=== PATIENT | male | born 1995 | race Caucasian/White ===

== ENCOUNTER 2018-02-04 08:38 | Inpatient (IN) | payer OTHER ==
[2018-02-04] MEDS ORDERED: NS 0.9% IVPB ONE (08:46)
[2018-02-04] MEDS ORDERED: HYDROXOCOBALAMIN IVPB ONE (08:46)
--- NOTE | 2018-02-04 09:02 | ED ---
Psychiatric Complaint - HPI Summary HPI Summary: This is scribe Greg Sales documenting for attending Dorinda Laughlin M.D. This patient is a 22 year old M presenting to [facility] with a chief complaint of suicide attempt with possible poison and cutting throat attempt since an unknown time [employer]. Pt emailed his brother telling him that he ingested cyanide. In addition, there are superficial lacerations to his throat. Pt is non-verbal, but was observed to be shaking/nodding his head at some questions in the ambulance. Per EMS, there was a chemical odor in his apartment. EMS found small amounts of a brown substance in 2 enclosed vials. Per EMS, pt was tachycardic for the entire time in the ambulance, and was measured at 99% O2 sat, BP 130/ 74. They note pt was tearful, salivating, and retching for the duration. Pts brother called pts mother, who called the power plant supervisor of the [employer]. Maintenance allowed EMS into apartment. Dr. Laughlin spoke with Debbie from poison center at 0832, will connect to Dr. Sifuentes. Pt vomited brownish liquid at the scene. Current BP 0837 103/61. Dr. Carter states his suspicion of cyanide ingestion is low, as pt would be in cardiac arrest by now; he notes pt will display severe metabolic acidosis if he did ingest cyanide (pH is 7.39 from lab). He recommends put in full 5 mg of hydroxocobalamin, which is compatible with saline , peripheral AC IV. Recommends 12.5 g sodium thiosulfate if pt enters cardiac arrest, in addition to another dose of hydroxocobalamin, but notes they are not compatible together (2nd IV is in place). 0839 pt no longer retching. 0846 start infusing hydroxocobalamin. Gas screen by [employer] negative on site. 0854 sat at 100% with 5 L NC. 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 PMHx bone densitometry done by Dr. Maynard, ordered for osteoporosis screening, nutritional deficiency; bone marrow density was found to be low. Hydroxocobalamin finished infusing 0903. Marte placed 0906. Temp 36.7 C. Police informed this scribe pt brought in on 9.41 status. Level 5 caveat : full HPI limited due to pt extremis. - History Of Current Complaint Chief Complaint: EDOverdose Time Seen by Provider: 02/04/18 08:42 Hx Obtained From: EMS Hx From Patient Unobtainable Due To: Extremis Onset/Duration: Sudden Onset, Lasting Minutes, Still Present Timing: Constant Severity Initially: Severe Severity Currently: Severe Character: Stuporous Aggravating Factor(s): Nothing Alleviating Factor(s): Nothing Associated Signs And Symptoms: Positive: Negative Has Suicidal: Reports: Thoughts, Demonstrates Gesture - Ingested unknown poison , lacerations to neck Ingestion History: Type/Name Of Drug - unknown, self-reported cyanide, Amount Ingested - unknown, Approximate Time Of Ingestion - unknown, around 0800 - Allergies/Home Medications Allergies/Adverse Reactions: Allergies Allergy/AdvReac Type Severity Reaction Status Date / Time No Known Allergies Allergy Verified 02/04/18 09:56 Home Medications: Home Medications Unobtainable 02/04/18 [History Confirmed 02/04/18] PMH/Surg Hx/FS Hx/Imm Hx Previously Healthy: No - unknown PMH, level 5 caveat due to extremis, altered mental status Endocrine/Hematology History: Denies: Hx Sickle Cell Disease Musculoskeletal History: Reports: Other Musculoskeletal History - low bone density 12/2017 - Surgical History Surgery Procedure, Year, and Place: unknown, level 5 caveat Infectious Disease History: Unable to Obtain/Confirm Infectious Disease History: Denies: Traveled Outside the [place] in Last 30 Days - Family History Known Family History: Positive: Unknown - level 5 caveat, extremis - Social History 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 Review of Systems Positive: Other - tearful, Positive: Nasal Discharge, Other - frothy sputum Positive: Cough Positive: Vomiting, Nausea Positive: no symptoms reported Positive: Rash - back, diffuse Positive: Other - SI, with attempt All Other Systems Reviewed And Are Negative: No - Comments Additional Review of Systems Comments: Level 5 caveat: Full ROS unobtainable due to pt extremis and altered mental status. Physical Exam - Summary Physical Exam Summary: Appearance: nasal trumpet placed in right nostril on admission due to decreased resps at times with decreased O2 sats, dry-heaving, appears to be moving all extremities, tearful, clear nasal secretions, spitting clear frothy sputum Skin: Warm, color reflects adequate perfusion, dry, superficial lacerations to the ant neck at the level of thyroid cartilage, superficial lacerations across LUQ and left ventral surface of forearm. Diffuse macular-papular erythematous rash on back. Head: Atraumatic, nasal and oral clear secretions Eyes: Conjunctiva clear, pupils 2 mm, reactive, squints eyes closed with attempt to check pupils. ENT: frothy sputum, nasal trumpet placed in right nostril on admission, clear nasal secretions Neck: Supple, no nodes, no JVD, two superficial lacerations to the anterior neck at the level of thyroid cartilage, non-penetrating, no neck swelling, trachea midline. Respiratory: Lungs clear, normal breath sounds, no wheeze, nasal trumpet in right nostril, periods of decreased respirations (9-11), increases with stimulation. Cardio: RRR, No murmur, pulses normal, brisk capillary refill Abdomen: Soft, non-tender, no masses Bowel sounds: Present Musculoskeletal: Strength Intact/ROM intact, no calf swelling, no edema. Appears to be moving all extremities. Psychological: Unable to assess, non-verbal Neuro: Non-verbal, muscle tone normal, no focal deficit, moves all extremities, Babinski down-going bilaterally. No facial droop. GCS: 8 Triage Information Reviewed: Yes Vital Signs On Initial Exam: Initial Vitals Temp Pulse Resp BP Pulse Ox 100.3 F 113 13 103/61 99 02/04/18 08:44 02/04/18 08:44 02/04/18 08:44 02/04/18 08:44 02/04/18 08:44 Vital Signs Reviewed: Yes Completion Of Physical Exam Limited Due To: Extremis - Randolph Coma Scale Best Eye Response: 2 - To Pain Best Motor Response: 5 - Purposeful Movement Best Verbal Response: 2 - Incomprehensible Words Coma Scale Total: 9 Diagnostics - Vital Signs Vital Signs Temp Pulse Resp BP Pulse Ox 02/04/18 08:44 100.3 F 113 13 103/61 99 - Laboratory Result Diagrams: 02/04/18 08:45 02/04/18 13:45 Lab Statement: Any lab studies that have been ordered have been reviewed, and results considered in the medical decision making process. - Radiology CXR Xray Interpretation: No Acute Changes Radiology Interpretation Completed By: Radiologist - No active cardiopulmonary disease. Dr. Laughlin has reviewed this report. - CT Neck CT Interpretation: No Acute Changes CT Interpretation Completed By: Radiologist - INCIDENTALLY NOTED IS ECTOPIC THYROID TISSUE TRACKING ALONG THE THYROGLOSSAL DUCT TO THE BASE OF THE TONGUE. NO ACUTE CT PATHOLOGY OF THE NECK. Dr. Laughlin has reviewed this report. Brain CT Interpretation Completed By: Radiologist - No acute intracranial pathology. Dr. Laughlin has reviewed this report. - EKG 0859 Cardiac Rate: NL - 69 EKG Rhythm: Sinus Rhythm ST Segment: Normal Ectopy: None EKG Interpretation: nl AV IV CT, nl QTc, nl axis EKG Comparison: No Significant Change - no prior to compare with Re-Evaluation - Re-Evaluation First Eval Change: Improved Comment: after CT, pt more alert, answers some yes/no questions, no focal deficit. Nasal trumpet removed. Dr. Mata assumes care, ICU. 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 EMS provided prenotification of possible substance ingestion, possible cyanide, and 2 substances found with pt and chemical odor. [employer] with meters and laser scan determined substances safe for pt to enter ED without decontamination, per Donald العراقي and Mehul from [facility]. Staff in ED and myself in full PPE prior to pt arrival, and universal precautions maintained by all involved in pt's care throughout pt stay in the ED. Haz mat team notified in advance of pt arrival and present in the ED. Discussed with poison control, Debbie, who contacted Dr. Carter, plant nursery worker, immediately upon pt arrival, and assisted care and recommended hydroxocobalamin, cyanide antidote, despite unlikely cyanide ingestion as pt not in cardiac arrest. Pharmacist Landon and Lauri Riley present in ED assisting with medication. Respiratory at bedside assisting suction, airway maintenance, monitoring respirations, obtaining ABG. Dr. Mata, ICU present in ED assessing and monitoring pt. Pt with superficial (apparent self inflicted) lacerations to ant neck, upper abdomen and left ventral forearm. Bleeding controlled. No evidence of penetrating injury, or intrusion into airway or trachea. CT soft tissues neck with contrast ordered to fully evaluate neck and airway. CXR, CT Brain, CT soft tissues neck with IV contrast , all negative. EGK 69 BPM nl sinus, nl axis, nl AV IV CT, nl QTc, no acute changes. Lactic acid 2.3, Glucose 119. ABG pH 7.39. Pt given hydroxocobalmin 5g IV (cyanide antidote) per poison control, Dr. Sifuentes, plant nursery worker. Pt returned to ED from CT, more alert. Nasal trumpet removed, fluids continue to infuse. Pt will have 1:1 observation for suicide attempt in addition to continued medical treatment for altered mental status, toxic ingestion of unknown substance, possible cyanide. Ingested substance later determined to be copper cyanide, toxic and caustic to GI tract. PPE and universal precautions maintained throughout ED stay by all staff involved in pt care. Pt transferred to ICU. [employer]PD officerJaden, present in ED. - Differential Dx/Clinical Impression Differential Diagnosis/HQI/PQRI: Positive: Acute Psychosis, Alcohol Intoxication , Drug Overdose/Intentional, Suicide Attempt, Suicidal Gesture Provider Diagnosis: Altered mental status, Laceration of neck, Suicide attempt, Ingested substance , unknown drug, Suicidal behavior with attempted self-injury, Suicide and self- inflicted injury by caustic substance - Physician Notifications Instructed by Provider To: Admit As Inpatient - Critical Care Time Critical Care Time: 30-74 min - 30 minutes, assessment of neck lacerations and poisoning with unknown ingested substance, in pt with altered mental status, and decreased respirations, low O2 saturations. Discharge - Sign-Out/Discharge Documenting (check all that apply): Patient Departure - admit - Discharge Plan Condition: Critical Disposition: ADMITTED TO [facility] - Billing Disposition and Condition Condition: CRITICAL Disposition: Admitted to [facility]
[2018-02-04] MEDS ORDERED: NS 0.9% 1000 ML* 2,000 ML IV ONE (09:06)
[2018-02-04 09:07] LABS: ABS Basophils 0.1 10^3/ul (0-0.2); ABS Eosinophils 0 10^3/ul (0-0.6); ABS Lymphocytes 1.2 10^3/ul (1.0-4.8); ABS Monocytes 0.5 10^3/ul (0-0.8); ABS Neutrophils 10.6 10^3/ul (1.5-7.7); ABS Nucleated RBC 0 10^3/ul; Eosinophil % 0.1 % (0-6); Hematocrit 47 % (42-52); Lymphocyte % 10.1 % (25-47); Mean Corpuscular HGB Conc 34 g/dl (31-36); Mean Corpuscular Hemoglobin 31 pg (27-31); Mean Corpuscular Volume 89 fL (80-94); Mean Platelet Volume 8.5 um3 (7.4-10.4); Nucleated Red Blood Cells % 0; Platelet Count 224 10^3/ul (150-450); Red Blood Count 5.25 10^6/ul (4.00-5.40); Red Cell Distribution Width 13 % (10.5-15); White Blood Count 12.4 10^3/ul (3.5-10.8)
[2018-02-04 09:20] LABS: EGFR Non-African American 109.3 (>60)
[2018-02-04] MEDS ORDERED: Iodixanol* (CONTRAST) 320 MG/ML 100 ML SDV IV ONE (09:37)
--- NOTE | 2018-02-04 09:44 | RAD ---
HISTORY: overdose, altered mental status COMPARISONS: None TECHNIQUE: Multiple contiguous axial CT scans were obtained of the head without intravenous contrast. FINDINGS: HEMORRHAGE/INFARCT: There is no hemorrhage or acute infarct. MASSES/SHIFT: There is no mass or shift. EXTRA-AXIAL SPACES: There are no extra-axial fluid collections. SULCI AND VENTRICLES: The sulci and ventricles are normal in size and position for the patient's stated age. CEREBRUM: There are no focal parenchymal abnormalities. BRAINSTEM: There are no focal parenchymal abnormalities. CEREBELLUM: There are no focal parenchymal abnormalities. VESSELS: The vessels are grossly normal. PARANASAL SINUSES: The paranasal sinuses are clear. ORBITS: The orbits are unremarkable. BONES AND SOFT TISSUE: No bone or soft tissue abnormalities are noted. OTHER: None IMPRESSION: NO ACUTE INTRACRANIAL PATHOLOGY.
--- NOTE | 2018-02-04 09:50 | RAD ---
HISTORY: self inflicted lacs to ant neck,thyroid cart level COMPARISONS: None TECHNIQUE: Multiple contiguous axial CT scans were obtained of the neck both before and after the administration of nonionic intravenous contrast, with coronal and sagittal multiplanar reformations. FINDINGS: BRAIN AND ORBITS: The visualized brain and orbits are normal. PARANASAL SINUSES: The visualized paranasal sinuses are clear. SALIVARY GLANDS: The parotid glands, submandibular glands, sublingual glands are normal. NASAL CAVITY/NASOPHARYNX: The nasal cavity and nasopharynx are normal. A nasal trumpet is noted. ORAL CAVITY/OROPHARYNX: The oral cavity is obscured by streak artifact from dental amalgam. The visualized oral cavity and oropharynx are unremarkable. LARYNGEAL APPARATUS/HYPOPHARYNX: The laryngeal apparatus and hypopharynx are normal. UPPER AIRWAY/UPPER ESOPHAGUS: The visualized upper airway and esophagus are normal. LUNG APICES: The lung apices are clear. THYROID GLAND: Incidentally noted is ectopic thyroid tissue tracking along the expected location of thyroglossal duct, extending to the base of the tongue. The thyroid gland is otherwise unremarkable. LYMPH NODES: There is no lymphadenopathy by size criteria. VASCULATURE: The vasculature is unremarkable. BONES AND SOFT TISSUES: Incidentally noted is a persistent subdental synchondrosis. No other bone or soft tissue abnormalities are noted. OTHER: None. IMPRESSION: INCIDENTALLY NOTED IS ECTOPIC THYROID TISSUE TRACKING ALONG THE THYROGLOSSAL DUCT TO THE BASE OF THE TONGUE. NO ACUTE CT PATHOLOGY OF THE NECK.
--- NOTE | 2018-02-04 10:09 | RAD ---
HISTORY: overdose COMPARISONS: None VIEWS: 1: frontal AP view of the chest at 9:34 AM FINDINGS: LINES AND TUBES: None. CARDIOMEDIASTINAL SILHOUETTE: The cardiomediastinal silhouette is normal for portable technique. PLEURA: The costophrenic angles are sharp. No pleural abnormalities are noted. LUNG PARENCHYMA: The lungs are clear. ABDOMEN: The upper abdomen is clear. There is no subphrenic gas. BONES AND SOFT TISSUES: No bone or soft tissue abnormalities are noted. IMPRESSION: NO ACTIVE CARDIOPULMONARY DISEASE.
[2018-02-04 10:31] LABS: INR 1.07 (0.77-1.02)
[2018-02-04 11:04] LABS: Urine Color Red
[2018-02-04 11:05] LABS: Urine Appearance Cloudy
[2018-02-04 11:07] LABS: Urine Specific Gravity 1.024 (1.010-1.030)
[2018-02-04 11:08] LABS: Urine Red Blood Cell 1+(3-5/hpf) (Absent); Urine White Blood Cell Trace(0-5/hpf) (Absent)
[2018-02-04] MEDS ORDERED: NS 0.9% 1000 ML* 1,000 ML IV SCH (11:30)
[2018-02-04] MEDS: Pantoprazole IV* 40 MG IV SCH (12:05)
--- NOTE | 2018-02-04 12:06 | HP ---
H&P (Free Text) History and Physical: CC: overdose HPI: 22M with unknown pmh brought in by EMS for drug overdose and suicide attempt. Patient altered and unable to provide history. History obtained from ER staff and chart. 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 He wrote an email to his brother stating he was going to kill himself using cyanide from his lab. His family called the apartment complex who called EMS. EMS found the patient altered and brought him to the ER. He was found with vials of unknown substances which have been obtained by the police. The patient had labs drawn, was given hydroxycyanocobalamin, iv fluids and transferred to the ICU. Upon arrival in the ICU the patient was slightly more arousable and was able to draw the symbol for copper cyanide on a piece of paper. He also has superficial lacerations on his neck and stomach and arm. Case was discussed with poison control. ROS - unable 2/2 AMS PMHx - unknown PSHx - unknown All - NKDA FamHx - unknown SocHx - unknown PE Vital Signs: Temp Pulse Resp BP Pulse Ox 99.1 F 76 24 120/78 100 02/04/18 11:35 02/04/18 10:15 02/04/18 10:15 02/04/18 10:15 02/04/18 10:15 GEN - NAD HEENT - ncat, eomi Neck - +superficial lacs CV - s1/s2, no murmur Lungs - cta, no wheeze Abd - soft, nt, nd Ext - no cce Neuro - lethargic, arousable, following commands Labs: Laboratory Results - last 24 hr 02/04/18 02/04/18 02/04/18 08:45 08:45 08:45 WBC 12.4 H RBC 5.25 Hgb 16.0 Hct 47 MCV 89 MCH 31 MCHC 34 RDW 13 Plt Count 224 MPV 8.5 Neut % (Auto) 85.3 H Lymph % (Auto) 10.1 L [place] % (Auto) 4.1 Eos % (Auto) 0.1 Baso % (Auto) 0.4 Absolute Neuts (auto) 10.6 H Absolute Lymphs (auto) 1.2 Absolute Monos (auto) 0.5 Absolute Eos (auto) 0 Absolute Basos (auto) 0.1 Absolute Nucleated RBC 0 Nucleated RBC % 0 INR (Anticoag Therapy) APTT Patient Temperature ABG pH ABG pH (Temp Correct) ABG pCO2 ABG pCO2 (Temp Corrct ABG pO2 ABG pO2 (Temp Correct ABG HCO3 ABG O2 Saturation ABG Base Excess Carbon Monoxide Screen Respiration Rate O2 Delivery Device Ventilator Type Vent Mode FiO2 Inspiratory Time PEEP Pressure Support Pressure Control EPAP IPAP BiPAP Sodium 136 Potassium 4.1 Chloride 102 Carbon Dioxide 22 Anion Gap 12 H BUN 16 Creatinine 0.86 Est GFR ( Amer) 132.2 Est GFR (Non-Af Amer) 109.3 BUN/Creatinine Ratio 18.6 Glucose 119 H Serum Osmolality Lactic Acid Calcium 10.1 Phosphorus 2.0 L Magnesium 2.1 Total Bilirubin 1.10 H AST 22 ALT 18 Alkaline Phosphatase 60 Ammonia 39 Total Creatine Kinase 91 Troponin I 0.00 Total Protein 7.8 Albumin 5.1 Globulin 2.7 Albumin/Globulin Ratio 1.9 TSH 1.38 Urine Color Urine Appearance Urine pH Ur Specific [place] Urine WBC (Auto) Urine RBC (Auto) Amorphous Crystals Urine Bacteria Salicylates < 2.50 Urine Opiates Screen Acetaminophen < 15 Ur Barbiturates Screen Ur Phencyclidine Scrn Ur Amphetamines Screen U Benzodiazepines Scrn Urine Cocaine Screen U Cannabinoids Screen Serum Alcohol < 10 Blood Type Antibody Screen 02/04/18 02/04/18 02/04/18 08:45 08:45 08:45 WBC RBC Hgb Hct MCV MCH MCHC RDW Plt Count MPV Neut % (Auto) Lymph % (Auto) [place] % (Auto) Eos % (Auto) Baso % (Auto) Absolute Neuts (auto) Absolute Lymphs (auto) Absolute Monos (auto) Absolute Eos (auto) Absolute Basos (auto) Absolute Nucleated RBC Nucleated RBC % INR (Anticoag Therapy) 1.07 H APTT 28.9 Patient Temperature ABG pH ABG pH (Temp Correct) ABG pCO2 ABG pCO2 (Temp Corrct ABG pO2 ABG pO2 (Temp Correct ABG HCO3 ABG O2 Saturation ABG Base Excess Carbon Monoxide Screen Respiration Rate O2 Delivery Device Ventilator Type Vent Mode FiO2 Inspiratory Time PEEP Pressure Support Pressure Control EPAP IPAP BiPAP Sodium Potassium Chloride Carbon Dioxide Anion Gap BUN Creatinine Est GFR ( Amer) Est GFR (Non-Af Amer) BUN/Creatinine Ratio Glucose Serum Osmolality 293 Lactic Acid 2.3 H* Calcium Phosphorus Magnesium Total Bilirubin AST ALT Alkaline Phosphatase Ammonia Total Creatine Kinase Troponin I Total Protein Albumin Globulin Albumin/Globulin Ratio TSH Urine Color Urine Appearance Urine pH Ur Specific [place] Urine WBC (Auto) Urine RBC (Auto) Amorphous Crystals Urine Bacteria Salicylates Urine Opiates Screen Acetaminophen Ur Barbiturates Screen Ur Phencyclidine Scrn Ur Amphetamines Screen U Benzodiazepines Scrn Urine Cocaine Screen U Cannabinoids Screen Serum Alcohol Blood Type Antibody Screen 02/04/18 02/04/18 02/04/18 08:50 08:50 08:57 WBC RBC Hgb Hct MCV MCH MCHC RDW Plt Count MPV Neut % (Auto) Lymph % (Auto) [place] % (Auto) Eos % (Auto) Baso % (Auto) Absolute Neuts (auto) Absolute Lymphs (auto) Absolute Monos (auto) Absolute Eos (auto) Absolute Basos (auto) Absolute Nucleated RBC Nucleated RBC % INR (Anticoag Therapy) APTT Patient Temperature Not Reportable ABG pH 7.39 ABG pH (Temp Correct) Not Reportable ABG pCO2 38 ABG pCO2 (Temp Corrct Not Reportable ABG pO2 135 H ABG pO2 (Temp Correct Not Reportable ABG HCO3 23.5 ABG O2 Saturation 99.0 H ABG Base Excess -1.7 Carbon Monoxide Screen Respiration Rate Not Reportable O2 Delivery Device nc Ventilator Type Not Reportable Vent Mode Not Reportable FiO2 5 Inspiratory Time Not Reportable PEEP Not Reportable Pressure Support Not Reportable Pressure Control Not Reportable EPAP Not Reportable IPAP Not Reportable BiPAP Not Reportable Sodium Potassium Chloride Carbon Dioxide Anion Gap BUN Creatinine Est GFR ( Amer) Est GFR (Non-Af Amer) BUN/Creatinine Ratio Glucose Serum Osmolality Lactic Acid Calcium Phosphorus Magnesium Total Bilirubin AST ALT Alkaline Phosphatase Ammonia Total Creatine Kinase Troponin I Total Protein Albumin Globulin Albumin/Globulin Ratio TSH Urine Color Urine Appearance Urine pH Ur Specific [place] Urine WBC (Auto) Urine RBC (Auto) Amorphous Crystals Urine Bacteria Salicylates Urine Opiates Screen None detected Acetaminophen Ur Barbiturates Screen None detected Ur Phencyclidine Scrn None detected Ur Amphetamines Screen None detected U Benzodiazepines Scrn None detected Urine Cocaine Screen None detected U Cannabinoids Screen Presumptive positive A Serum Alcohol Blood Type A Positive Antibody Screen Negative 02/04/18 02/04/18 09:00 10:00 WBC RBC Hgb Hct MCV MCH MCHC RDW Plt Count MPV Neut % (Auto) Lymph % (Auto) [place] % (Auto) Eos % (Auto) Baso % (Auto) Absolute Neuts (auto) Absolute Lymphs (auto) Absolute Monos (auto) Absolute Eos (auto) Absolute Basos (auto) Absolute Nucleated RBC Nucleated RBC % INR (Anticoag Therapy) APTT Patient Temperature ABG pH ABG pH (Temp Correct) ABG pCO2 ABG pCO2 (Temp Corrct ABG pO2 ABG pO2 (Temp Correct ABG HCO3 ABG O2 Saturation ABG Base Excess Carbon Monoxide Screen < 4 Respiration Rate O2 Delivery Device Ventilator Type Vent Mode FiO2 Inspiratory Time PEEP Pressure Support Pressure Control EPAP IPAP BiPAP Sodium Potassium Chloride Carbon Dioxide Anion Gap BUN Creatinine Est GFR ( Amer) Est GFR (Non-Af Amer) BUN/Creatinine Ratio Glucose Serum Osmolality Lactic Acid Calcium Phosphorus Magnesium Total Bilirubin AST ALT Alkaline Phosphatase Ammonia Total Creatine Kinase Troponin I Total Protein Albumin Globulin Albumin/Globulin Ratio TSH Urine Color Red A Urine Appearance Cloudy Urine pH Ur Specific [place] 1.024 Urine WBC (Auto) Trace(0-5/hpf) Urine RBC (Auto) 1+(3-5/hpf) A Amorphous Crystals Present A Urine Bacteria Absent Salicylates Urine Opiates Screen Acetaminophen Ur Barbiturates Screen Ur Phencyclidine Scrn Ur Amphetamines Screen U Benzodiazepines Scrn Urine Cocaine Screen U Cannabinoids Screen Serum Alcohol Blood Type Antibody Screen Imagin/2: CT Head Impression: No acute intracranial pathology 02/04: CXR Impression: No cardiopulmonary disease 02/04: CT Neck Impression: No acute neck pathology. Incidental ectopic thyroid tissue. Impression: 22M with unknown PMH presents after suicide attempt with copper cyanide Plan: - Discussed with Poison control - unlikely to cause cyanide toxicity in copper salt form - copper salt can be caustic to GI tract - given hydroxycyanocobalamin in ER - utox positive for cannabinoids - picc line placed for q1h vbg and lactates - GI consult - PPI - NPO - Psychiatry consult - 1:1 for safety - iv hydration - monitor i/o - scds - full code Admit to ICU Critical Care Time: 70 minutes
[2018-02-04 14:28] LABS: EGFR Non-African American 150.9 (>60)
[2018-02-04] MEDS ORDERED: Heparin VIAL(*) 5000 UNITS/ML VIAL (FIVE THOUSAND) SUBCUT SCH (21:00)
[2018-02-05 06:16] LABS: ABS Basophils 0.1 10^3/ul (0-0.2); ABS Eosinophils 0.1 10^3/ul (0-0.6); ABS Lymphocytes 1.2 10^3/ul (1.0-4.8); ABS Monocytes 0.6 10^3/ul (0-0.8); ABS Neutrophils 7.6 10^3/ul (1.5-7.7); ABS Nucleated RBC 0 10^3/ul; Eosinophil % 0.7 % (0-6); Hematocrit 41 % (42-52); Lymphocyte % 12.7 % (25-47); Mean Corpuscular HGB Conc 35 g/dl (31-36); Mean Corpuscular Hemoglobin 31 pg (27-31); Mean Corpuscular Volume 91 fL (80-94); Mean Platelet Volume 8.5 um3 (7.4-10.4); Nucleated Red Blood Cells % 0.1; Platelet Count 154 10^3/ul (150-450); Red Blood Count 4.48 10^6/ul (4.00-5.40); Red Cell Distribution Width 14 % (10.5-15); White Blood Count 9.6 10^3/ul (3.5-10.8)
[2018-02-05 06:32] LABS: EGFR Non-African American 122.3 (>60)
--- NOTE | 2018-02-05 08:28 | PN ---
Date of Service: 02/05/18 Critical Care Services: 22M admitted with suicide attempt with copper cyanide. 02/05: Urine remains discolored. Discussed with poison control and is secondary to cyano-kit given in ER. Patient reports diarrhea. No other complaints. Vital Signs: Temp Pulse Resp BP SpO2 FiO2 99.2 F 63 15 105/54 96 02/05/18 07:47 02/05/18 05:00 02/05/18 05:00 02/05/18 04:00 02/05/18 04:00 Physical Exam: GEN - NAD HEENT - ncat, eomi Neck - +superficial lacs CV - s1/s2, no murmur Lungs - cta, no wheeze Abd - soft, nt, nd Ext - no cce Neuro - non-focal Fluid Balance (Past 24 Hours): I= O= Net Intake & Output 02/03/18 02/04/18 02/05/18 02/06/18 06:59 06:59 06:59 06:59 Intake Total 3049 Output Total 1179 Balance 1870 Weight 49.7 kg Intake: IV Fluids 3049 NS (0.9%) 1299 Oral 0 Output: Sandoval 1179 Other: # Bowel Movements 0 Estimated Stool Amount Large Labs: Laboratory Results - last 24 hr 02/04/18 02/04/18 02/04/18 08:45 08:45 08:45 WBC 12.4 H RBC 5.25 Hgb 16.0 Hct 47 MCV 89 MCH 31 MCHC 34 RDW 13 Plt Count 224 MPV 8.5 Neut % (Auto) 85.3 H Lymph % (Auto) 10.1 L [place] % (Auto) 4.1 Eos % (Auto) 0.1 Baso % (Auto) 0.4 Absolute Neuts (auto) 10.6 H Absolute Lymphs (auto) 1.2 Absolute Monos (auto) 0.5 Absolute Eos (auto) 0 Absolute Basos (auto) 0.1 Absolute Nucleated RBC 0 Nucleated RBC % 0 INR (Anticoag Therapy) APTT Patient Temperature ABG pH ABG pH (Temp Correct) ABG pCO2 ABG pCO2 (Temp Corrct ABG pO2 ABG pO2 (Temp Correct ABG HCO3 ABG O2 Saturation ABG Base Excess VBG pH VBG pCO2 VBG pO2 VBG HCO3 VBG O2 Saturation VBG Base Excess Carbon Monoxide Screen Respiration Rate O2 Delivery Device Ventilator Type Vent Mode FiO2 Inspiratory Time PEEP Pressure Support Pressure Control EPAP IPAP BiPAP Sodium 136 Potassium 4.1 Chloride 102 Carbon Dioxide 22 Anion Gap 12 H BUN 16 Creatinine 0.86 Est GFR ( Amer) 132.2 Est GFR (Non-Af Amer) 109.3 BUN/Creatinine Ratio 18.6 Glucose 119 H Serum Osmolality Lactic Acid Calcium 10.1 Phosphorus 2.0 L Magnesium 2.1 Total Bilirubin 1.10 H AST 22 ALT 18 Alkaline Phosphatase 60 Ammonia 39 Total Creatine Kinase 91 Troponin I 0.00 Total Protein 7.8 Albumin 5.1 Globulin 2.7 Albumin/Globulin Ratio 1.9 TSH 1.38 Urine Color Urine Appearance Urine pH Ur Specific Brimson Urine WBC (Auto) Urine RBC (Auto) Amorphous Crystals Urine Bacteria Salicylates < 2.50 Urine Opiates Screen Acetaminophen < 15 Ur Barbiturates Screen Ur Phencyclidine Scrn Ur Amphetamines Screen U Benzodiazepines Scrn Urine Cocaine Screen U Cannabinoids Screen Serum Alcohol < 10 Blood Type Antibody Screen 02/04/18 02/04/18 02/04/18 08:45 08:45 08:45 WBC RBC Hgb Hct MCV MCH MCHC RDW Plt Count MPV Neut % (Auto) Lymph % (Auto) [place] % (Auto) Eos % (Auto) Baso % (Auto) Absolute Neuts (auto) Absolute Lymphs (auto) Absolute Monos (auto) Absolute Eos (auto) Absolute Basos (auto) Absolute Nucleated RBC Nucleated RBC % INR (Anticoag Therapy) 1.07 H APTT 28.9 Patient Temperature ABG pH ABG pH (Temp Correct) ABG pCO2 ABG pCO2 (Temp Corrct ABG pO2 ABG pO2 (Temp Correct ABG HCO3 ABG O2 Saturation ABG Base Excess VBG pH VBG pCO2 VBG pO2 VBG HCO3 VBG O2 Saturation VBG Base Excess Carbon Monoxide Screen Respiration Rate O2 Delivery Device Ventilator Type Vent Mode FiO2 Inspiratory Time PEEP Pressure Support Pressure Control EPAP IPAP BiPAP Sodium Potassium Chloride Carbon Dioxide Anion Gap BUN Creatinine Est GFR ( Amer) Est GFR (Non-Af Amer) BUN/Creatinine Ratio Glucose Serum Osmolality 293 Lactic Acid 2.3 H* Calcium Phosphorus Magnesium Total Bilirubin AST ALT Alkaline Phosphatase Ammonia Total Creatine Kinase Troponin I Total Protein Albumin Globulin Albumin/Globulin Ratio TSH Urine Color Urine Appearance Urine pH Ur Specific [place]imson Urine WBC (Auto) Urine RBC (Auto) Amorphous Crystals Urine Bacteria Salicylates Urine Opiates Screen Acetaminophen Ur Barbiturates Screen Ur Phencyclidine Scrn Ur Amphetamines Screen U Benzodiazepines Scrn Urine Cocaine Screen U Cannabinoids Screen Serum Alcohol Blood Type Antibody Screen 02/04/18 02/04/18 02/04/18 08:50 08:50 08:57 WBC RBC Hgb Hct MCV MCH MCHC RDW Plt Count MPV Neut % (Auto) Lymph % (Auto) [place] % (Auto) Eos % (Auto) Baso % (Auto) Absolute Neuts (auto) Absolute Lymphs (auto) Absolute Monos (auto) Absolute Eos (auto) Absolute Basos (auto) Absolute Nucleated RBC Nucleated RBC % INR (Anticoag Therapy) APTT Patient Temperature Not Reportable ABG pH 7.39 ABG pH (Temp Correct) Not Reportable ABG pCO2 38 ABG pCO2 (Temp Corrct Not Reportable ABG pO2 135 H ABG pO2 (Temp Correct Not Reportable ABG HCO3 23.5 ABG O2 Saturation 99.0 H ABG Base Excess -1.7 VBG pH VBG pCO2 VBG pO2 VBG HCO3 VBG O2 Saturation VBG Base Excess Carbon Monoxide Screen Respiration Rate Not Reportable O2 Delivery Device nc Ventilator Type Not Reportable Vent Mode Not Reportable FiO2 5 Inspiratory Time Not Reportable PEEP Not Reportable Pressure Support Not Reportable Pressure Control Not Reportable EPAP Not Reportable IPAP Not Reportable BiPAP Not Reportable Sodium Potassium Chloride Carbon Dioxide Anion Gap BUN Creatinine Est GFR ( Amer) Est GFR (Non-Af Amer) BUN/Creatinine Ratio Glucose Serum Osmolality Lactic Acid Calcium Phosphorus Magnesium Total Bilirubin AST ALT Alkaline Phosphatase Ammonia Total Creatine Kinase Troponin I Total Protein Albumin Globulin Albumin/Globulin Ratio TSH Urine Color Urine Appearance Urine pH Ur Specific Brimson Urine WBC (Auto) Urine RBC (Auto) Amorphous Crystals Urine Bacteria Salicylates Urine Opiates Screen None detected Acetaminophen Ur Barbiturates Screen None detected Ur Phencyclidine Scrn None detected Ur Amphetamines Screen None detected U Benzodiazepines Scrn None detected Urine Cocaine Screen None detected U Cannabinoids Screen Presumptive positive A Serum Alcohol Blood Type A Positive Antibody Screen Negative 02/04/18 02/04/18 02/04/18 09:00 10:00 11:45 WBC RBC Hgb Hct MCV MCH MCHC RDW Plt Count MPV Neut % (Auto) Lymph % (Auto) [place] % (Auto) Eos % (Auto) Baso % (Auto) Absolute Neuts (auto) Absolute Lymphs (auto) Absolute Monos (auto) Absolute Eos (auto) Absolute Basos (auto) Absolute Nucleated RBC Nucleated RBC % INR (Anticoag Therapy) APTT Patient Temperature ABG pH ABG pH (Temp Correct) ABG pCO2 ABG pCO2 (Temp Corrct ABG pO2 ABG pO2 (Temp Correct ABG HCO3 ABG O2 Saturation ABG Base Excess VBG pH 7.32 L VBG pCO2 46 VBG pO2 37 VBG HCO3 22.0 L VBG O2 Saturation 71.5 VBG Base Excess -2.7 L Carbon Monoxide Screen < 4 Respiration Rate O2 Delivery Device Ventilator Type Vent Mode FiO2 Inspiratory Time PEEP Pressure Support Pressure Control EPAP IPAP BiPAP Sodium Potassium Chloride Carbon Dioxide Anion Gap BUN Creatinine Est GFR ( Amer) Est GFR (Non-Af Amer) BUN/Creatinine Ratio Glucose Serum Osmolality Lactic Acid Calcium Phosphorus Magnesium Total Bilirubin AST ALT Alkaline Phosphatase Ammonia Total Creatine Kinase Troponin I Total Protein Albumin Globulin Albumin/Globulin Ratio TSH Urine Color Red A Urine Appearance Cloudy Urine pH Ur Specific Brimson 1.024 Urine WBC (Auto) Trace(0-5/hpf) Urine RBC (Auto) 1+(3-5/hpf) A Amorphous Crystals Present A Urine Bacteria Absent Salicylates Urine Opiates Screen Acetaminophen Ur Barbiturates Screen Ur Phencyclidine Scrn Ur Amphetamines Screen U Benzodiazepines Scrn Urine Cocaine Screen U Cannabinoids Screen Serum Alcohol Blood Type Antibody Screen 02/04/18 02/04/18 02/04/18 11:45 13:45 13:45 WBC RBC Hgb Hct MCV MCH MCHC RDW Plt Count MPV Neut % (Auto) Lymph % (Auto) [place] % (Auto) Eos % (Auto) Baso % (Auto) Absolute Neuts (auto) Absolute Lymphs (auto) Absolute Monos (auto) Absolute Eos (auto) Absolute Basos (auto) Absolute Nucleated RBC Nucleated RBC % INR (Anticoag Therapy) APTT Patient Temperature ABG pH ABG pH (Temp Correct) ABG pCO2 ABG pCO2 (Temp Corrct ABG pO2 ABG pO2 (Temp Correct ABG HCO3 ABG O2 Saturation ABG Base Excess VBG pH 7.31 L VBG pCO2 47 VBG pO2 40 VBG HCO3 22.0 L VBG O2 Saturation 76.9 VBG Base Excess -2.9 L Carbon Monoxide Screen Respiration Rate O2 Delivery Device Ventilator Type Vent Mode FiO2 Inspiratory Time PEEP Pressure Support Pressure Control EPAP IPAP BiPAP Sodium Potassium Chloride Carbon Dioxide Anion Gap BUN Creatinine Est GFR ( Amer) Est GFR (Non-Af Amer) BUN/Creatinine Ratio Glucose Serum Osmolality Lactic Acid 0.8 0.6 Calcium Phosphorus Magnesium Total Bilirubin AST ALT Alkaline Phosphatase Ammonia Total Creatine Kinase Troponin I Total Protein Albumin Globulin Albumin/Globulin Ratio TSH Urine Color Urine Appearance Urine pH Ur Specific Brimson Urine WBC (Auto) Urine RBC (Auto) Amorphous Crystals Urine Bacteria Salicylates Urine Opiates Screen Acetaminophen Ur Barbiturates Screen Ur Phencyclidine Scrn Ur Amphetamines Screen U Benzodiazepines Scrn Urine Cocaine Screen U Cannabinoids Screen Serum Alcohol Blood Type Antibody Screen 02/04/18 02/05/18 02/05/18 13:45 05:55 05:55 WBC 9.6 RBC 4.48 Hgb 14.0 Hct 41 L MCV 91 MCH 31 MCHC 35 RDW 14 Plt Count 154 MPV 8.5 Neut % (Auto) 79.1 Lymph % (Auto) 12.7 L [place] % (Auto) 6.8 Eos % (Auto) 0.7 Baso % (Auto) 0.7 Absolute Neuts (auto) 7.6 Absolute Lymphs (auto) 1.2 Absolute Monos (auto) 0.6 Absolute Eos (auto) 0.1 Absolute Basos (auto) 0.1 Absolute Nucleated RBC 0 Nucleated RBC % 0.1 INR (Anticoag Therapy) APTT Patient Temperature ABG pH ABG pH (Temp Correct) ABG pCO2 ABG pCO2 (Temp Corrct ABG pO2 ABG pO2 (Temp Correct ABG HCO3 ABG O2 Saturation ABG Base Excess VBG pH VBG pCO2 VBG pO2 VBG HCO3 VBG O2 Saturation VBG Base Excess Carbon Monoxide Screen Respiration Rate O2 Delivery Device Ventilator Type Vent Mode FiO2 Inspiratory Time PEEP Pressure Support Pressure Control EPAP IPAP BiPAP Sodium 139 140 Potassium 4.1 4.2 Chloride 109 110 Carbon Dioxide 24 23 Anion Gap 6 7 BUN 13 13 Creatinine 0.65 L 0.78 Est GFR ( Amer) 182.6 148.0 Est GFR (Non-Af Amer) 150.9 122.3 BUN/Creatinine Ratio 20.0 16.7 Glucose 91 77 Serum Osmolality Lactic Acid Calcium 8.5 L 8.9 Phosphorus 4.0 Magnesium 2.1 Total Bilirubin 1.40 H AST 20 ALT 16 Alkaline Phosphatase 58 Ammonia Total Creatine Kinase Troponin I Total Protein 6.4 Albumin 4.1 Globulin 2.3 Albumin/Globulin Ratio 1.8 TSH Urine Color Urine Appearance Urine pH Ur Specific Brimson Urine WBC (Auto) Urine RBC (Auto) Amorphous Crystals Urine Bacteria Salicylates Urine Opiates Screen Acetaminophen Ur Barbiturates Screen Ur Phencyclidine Scrn Ur Amphetamines Screen U Benzodiazepines Scrn Urine Cocaine Screen U Cannabinoids Screen Serum Alcohol Blood Type Antibody Screen 02/05/18 05:55 WBC RBC Hgb Hct MCV MCH MCHC RDW Plt Count MPV Neut % (Auto) Lymph % (Auto) [place] % (Auto) Eos % (Auto) Baso % (Auto) Absolute Neuts (auto) Absolute Lymphs (auto) Absolute Monos (auto) Absolute Eos (auto) Absolute Basos (auto) Absolute Nucleated RBC Nucleated RBC % INR (Anticoag Therapy) APTT Patient Temperature ABG pH ABG pH (Temp Correct) ABG pCO2 ABG pCO2 (Temp Corrct ABG pO2 ABG pO2 (Temp Correct ABG HCO3 ABG O2 Saturation ABG Base Excess VBG pH VBG pCO2 VBG pO2 VBG HCO3 VBG O2 Saturation VBG Base Excess Carbon Monoxide Screen Respiration Rate O2 Delivery Device Ventilator Type Vent Mode FiO2 Inspiratory Time PEEP Pressure Support Pressure Control EPAP IPAP BiPAP Sodium Potassium Chloride Carbon Dioxide Anion Gap BUN Creatinine Est GFR ( Amer) Est GFR (Non-Af Amer) BUN/Creatinine Ratio Glucose Serum Osmolality Lactic Acid 0.6 Calcium Phosphorus Magnesium Total Bilirubin AST ALT Alkaline Phosphatase Ammonia Total Creatine Kinase Troponin I Total Protein Albumin Globulin Albumin/Globulin Ratio TSH Urine Color Urine Appearance Urine pH Ur Specific Brimson Urine WBC (Auto) Urine RBC (Auto) Amorphous Crystals Urine Bacteria Salicylates Urine Opiates Screen Acetaminophen Ur Barbiturates Screen Ur Phencyclidine Scrn Ur Amphetamines Screen U Benzodiazepines Scrn Urine Cocaine Screen U Cannabinoids Screen Serum Alcohol Blood Type Antibody Screen Studies: 02/04: CT Head Impression: No acute intracranial pathology 02/04: CXR Impression: No cardiopulmonary disease 02/04: CT Neck Impression: No acute neck pathology. Incidental ectopic thyroid tissue. Impression: 22M with depresison presents after suicide attempt with copper cyanide Plan: Suicide Attempt with Copper-Cyanide - overall improved - labs unremarkable - continue 1:1 for safety - psychiatry consult - diarrhea 2/2 copper ingestion - discussed with GI and EGD not-indicated - will advance diet as tolerated - Urine remains purple colored (side effect from cyano-kit) - would keep sandoval for now - DC PICC line - SCDs - Stable for transfer to Floor - Turnover given to Hospitalist - Father updated via telephone - Full Code Critical Care Time: 35 mins
--- NOTE | 2018-02-05 09:34 | PTEDU ---
Patient Name: BETZAIDA SINGERYASMINJYOTI BETZAIDA MURRAY JYOTI selected video: About Your Heart Attack to view on 02/05/2018 at 9:33:32 AM from [id number]
[2018-02-05] MEDS: Pantoprazole IV* 40 MG IV SCH (11:03)
--- NOTE | 2018-02-05 12:39 | PN ---
Hospitalist Progress Note Date of Service: 02/05/18 Dr. Mata signed out Mr. Ruiz to me for transfer to the floor and I will assume his care today. I have discussed the case with him as well as with his nurse, Donavon today. Mr Ruiz remains on a 1:1 and is alert and pleasant and visiting with family. His vitals are stable, his labs are stable from this morning, and we await a psych consult. Poison control is on the case and I also spoke with Dr. Leigh's nurse and asked her to relay that he is not tolerating po at this time.
[2018-02-05] MEDS: Ondansetron INJ* 2 MG/ML VIAL IV PRN (18:12)
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
[2018-02-05] MEDS ORDERED: Artificial Tears* 15 ML BTL BOTH EYES PRN (22:33)
[2018-02-05] MEDS ORDERED: Polyethyl Glycol/Propylene Gly OPHTH.SOLN BOTH EYES PRN (22:51)
[2018-02-06] MEDS: Ondansetron INJ* 2 MG/ML VIAL IV PRN (07:26)
[2018-02-06] MEDS ORDERED: NS 0.9% 1000 ML* 1,000 ML IV ONE (10:14)
--- NOTE | 2018-02-06 10:32 | PN ---
Subjective Date of Service: 02/06/18 Interval History: . patient in better spirits Numerous friends visiting In terms of his nausea, it is decreased. He had episode of emesis after breakfast, but not since and not as of 5 PM -- Denies pain at this time. He is expecting to go to psychiatry floor (MHU) after he is deemed medically stable. He wants his sandoval removed and I agreed to that. Because of a few episodes of diarrhea, I am willing to give extra IVF and we will receck his electrolytes in the morning. His mom and dad are travelling to see him from [place], will arrive later. Discussed case with [facility] control ([phone] (spoke with "Debbie"). They recommend EGD, but do so academically and based on overstatement of nausea by nursing staff (miscommunication per patient). Patient is on PPI. Clinically, no indication for EGD at this time; but will re- discuss with GI this week. 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 perhaps transfer to MHU tomorrow, but we can follow . Family History: Unchanged from Admission Social History: Unchanged from Admission Past Medical History: Unchanged from Admission Objective Active Medications: . Sodium Chloride (Ns 0.9% 1000 Ml*) 1,000 mls @ 1,000 mls/hr IV .PER RATE ONE Stop: 02/06/18 11:13 Ondansetron HCl (Zofran Inj*) 4 mg IV Q6H PRN PRN Reason: NAUSEA Last Admin: 02/06/18 07:26 Dose: 4 mg Pantoprazole Sodium (Protonix Iv*) 40 mg IV Q24H SONA Last Admin: 02/05/18 11:03 Dose: 40 mg Polyethyl Glycol/Propylene Glycol (Lubricant Eye Drops) 1 drop BOTH EYES Q2H PRN PRN Reason: DRY EYE Last Admin: 02/05/18 23:15 Dose: 1 drop . Vital Signs - 8 hr 02/06/18 02/06/18 02/06/18 04:25 04:36 07:25 Temperature 99.3 F 99.3 F 98.9 F Pulse Rate 74 74 84 Respiratory 18 18 16 Rate Blood Pressure 131/67 131/67 133/64 (mmHg) O2 Sat by Pulse 100 100 100 Oximetry 02/06/18 07:26 Temperature Pulse Rate Respiratory 16 Rate Blood Pressure (mmHg) O2 Sat by Pulse Oximetry Oxygen Devices in Use Now: None Appearance: NAD Eyes: No Scleral Icterus Ears/Nose/Mouth/Throat: Clear Oropharnyx, - - lacerations on leck C/D/I - superficial. Neck: Trachea Midline Respiratory: Symmetrical Chest Expansion and Respiratory Effort, Clear to Auscultation Cardiovascular: NL Sounds; No Murmurs; No JVD Abdominal: NL Sounds; No Tenderness; No Distention Lymphatic: No Cervical Adenopathy Extremities: No Edema, - - cuts to arms noted Skin: No Rash or Ulcers Neurological: Alert and Oriented x 3 Lines/Tubes/Other Access: Clean, Dry and Intact Peripheral IV Nutrition: Taking PO's Result Diagrams: 02/05/18 05:55 02/07/18 06:15 Microbiology and Other Data: Microbiology 02/04/18 10:00 Urine Culture - Final Urine No Growth (<1,000 CFU/mL) 02/04/18 10:00 Nasal Screen MRSA (PCR) - Final Nasal Mrsa Not Detected Assess/Plan/Problems-Billing . Assessment: 22 yo man with suicide attempt with copper cyanide and also superficial neck and wrist lacerations. Medically improving - still with diarrhea (GI toxicity) but only minor electrolyte abnormalities Nausea is improving (zofran resolves it and it is becoming less severe). IVF for dehydration pursuant to diarrhea. Advancing diet Psychiatrist following closely - will take in MHU when medically clear (perhaps 02/07/2018). Checking labs in AM. . - Patient Problems (1) Attempted suicide Current Visit: Yes Status: Acute Priority: High (2) Copper poisoning Current Visit: Yes Status: Acute Priority: High Code(s): T56.4X1A - TOXIC EFFECT OF COPPER AND ITS COMPOUNDS, ACCIDENTAL, INIT (3) Excessive copper intake Current Visit: Yes Status: Acute Priority: High Code(s): R68.89 - OTHER GENERAL SYMPTOMS AND SIGNS (4) Laceration of wrist Current Visit: Yes Status: Acute Priority: High Code(s): S61.519A - LACERATION WITHOUT FOREIGN BODY OF UNSP WRIST, INIT ENCNTR
[2018-02-06] MEDS: Pantoprazole IV* 40 MG IV SCH (10:33)
[2018-02-07 07:09] LABS: EGFR Non-African American 115.4 (>60)
[2018-02-07] MEDS ORDERED: Potassium Chlor TAB* 20 MEQ TAB.ER PO ONE (08:10)
[2018-02-07] MEDS ORDERED: Magnesium Sulf 4 GM/100 ML IV* 4,000 MG/100 ML BAG IVPB ONE (08:10)
[2018-02-07] MEDS: Pantoprazole IV* 40 MG IV SCH (09:42)
--- NOTE | 2018-02-07 13:20 | PN ---
Hospitalist Progress Note Date of Service: 02/07/18 . HOSPITALIST DISCHARGE NOTE: See dc instructions and summary by me. Patient stable for transfer to U. dc instructions reviewed with the patient at the bedside. d/c patient to MHU today.
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
[2018-02-07 15:20] VITALS: BP 115/62
--- NOTE | 2018-02-07 18:56 | DS ---
TRANSFER / DISCHARGE SUMMARY: DATE OF ADMISSION: 02/04/18 DATE OF DISCHARGE/TRANSFER: 02/07/18, to mental health unit. PRIMARY CARE PHYSICIAN: None. 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 SECONDARY DIAGNOSES: 1. History of depression for years but no prior hospitalizations or treatments. 2. No history of suicidal planning/paranoid ideations/formal psychiatric diagnosis. TRANSFER MEDICATIONS: Protonix 40 mg IV q.24 hours (transitioning to oral). HISTORY OF PRESENT ILLNESS AND HOSPITAL COURSE: Please see the H and P by Dr. Brandon Mata on 02/04/18 as well as the psychiatric consultation on 02/05/[address] Gurinder Bourne as well as the followup psychiatric consultation by Dr. Nita Sandhu on 02/07/18. In brief, Mr. 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 The patient apparently wrote an e-mail to his brother stating he was going to commit suicide from cyanide ingestion. His family called his apartment complex who called emergency medical response who found the patient altered in his apartment and brought him to the emergency room. The patient directly indicated he had taken copper cyanide by drawing the chemical formula for copper cyanide. The police did obtain vials of unknown substances at his apartment. The patient was initially admitted to the ICU and with guidance from Poison Control, was given a dose of hydroxycyanocobalamin in the emergency room. The copper salt was known to be caustic to GI tract and this explained subsequent nausea, vomiting and diarrhea. The assembler for puller over hand on the case spoke with the GI acquisition consultant who felt EGD was not in order. Poison Control felt that EGD at some point would be appropriate although the patient's nausea and vomiting stopped and the patient was tolerating regular diet on 02/07/18. The patient's lab work was repeatedly stable, notwithstanding some minor electrolyte abnormalities , but on 02/07/18, the patient had generally normal electrolytes and the patient 's CBC was normal as of 02/05/18. The patient's urine is discolored and that is known to be secondary to the Cyanokit, he received in the emergency room ( turns urine purple). The patient initially had a PICC line but that was discontinued. The patient had a Marte catheter and that was also discontinued. The patient was kept on a one-to-one safety monitoring for some time during the hospitalization. The patient is being accepted to the mental health unit for further psychiatric treatment. Medically, the patient is currently for transfer to the MHU. TIME SPENT: Total time taken to discharge/transfer Mr. Ruiz was 45 minutes, greater than half that time was spent today going over the discharge process, explaining that to the patient and his family who were present. [id number]/[facility] #: [id number] RICH
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
== END 2018-02-07 18:05 | DRG 918 ==
LOC: ED 08:38 → ICU 09:13 → MED 02-05 08:11
PROVIDERS: ADMIT Internal Medicine; ATTEND Internal Medicine
PROC: 02HV33Z Insertion of Infusion Device into Superior Vena Cava, Percutaneous Approach (ICD-10-PCS; principal; 2018-02-04)
DX: T65.0X Toxic effect of cyanides (principal); F32.2 Major depressive disorder, single episode, severe without psychotic features; R41.82 Altered mental status, unspecified; S11.91XA Laceration without foreign body of unspecified part of neck, initial encounter; S61.519A Laceration without foreign body of unspecified wrist, initial encounter; S31.119A Laceration without foreign body of abdominal wall, unspecified quadrant without penetration into peritoneal cavity, initial encounter; X78.9XXA Intentional self-harm by unspecified sharp object, initial encounter; M41.9 Scoliosis, unspecified; Y92.039 Unspecified place in apartment as the place of occurrence of the external cause
CPT/HCPCS: 36415; 70450; 70491; 71045; 80048; 80053; 80307; 80320; 80329; 81003; 82140; 82248; 82375; 82550; 82803; 83605; 83735; 83930; 84100; 84443; 84484; 85025; 85610; 85730; 86850; 86900; 86901; 87086; 87641; 93005; 99285; A9270-GY; C1751; G0480; J2405; J3475; Q9967

== ENCOUNTER 2018-02-07 16:30 | Inpatient (IN) | payer OTHER ==
--- OUTSIDE RECORDS SUMMARY | 2018-02-07 19:32 | XMS REPORT ---
:1995 External Reference #:[id number] Demographics Phone Unavailable Preferred Language Unknown Marital Status Unknown Baptism Affiliation Unknown Race Unknown Ethnic Group Unknown Author Organization [facility] Address [address] [place] [id number] Phone [phone] Care Team Providers Name Role Phone Richard Arreola M.D. Care Team Information Program Director Substance Abuse Unavailable Problems Description No Information Social History Description No Information Available Allergies, Adverse Reactions, Alerts Description No Information Medications Description No Information Results Description No Information Procedures Description No Information Plan of Care No Information Available
[2018-02-07] MEDS ORDERED: Al Hydrox/Mg Hydrox/Simet LIQ* 30 ML UDC PO PRN (20:07)
[2018-02-07] MEDS ORDERED: Acetaminophen TAB* 325 MG PO PRN (20:07)
[2018-02-08] MEDS: Vitamin THERAPEUTIC TAB PO SCH (09:12)
--- NOTE | 2018-02-08 13:10 | PN ---
MHU: Group Therapy Note - Service Type Service Type: 79263 Group Psychotherapy - Cognitive Behavioral Group Therapy ( CBT):Patient was attentive and participatory in CBT programming this morning, and remained in good behavioral control. Patient expressed positive insights regarding relevant treatment interventions and goals.
[2018-02-08] MEDS: Sertraline* 50 MG TAB PO SCH (15:48)
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
[2018-02-09] MEDS: Sertraline* 50 MG TAB PO SCH (09:00)
[2018-02-09] MEDS: Vitamin THERAPEUTIC TAB PO SCH (09:00)
--- NOTE | 2018-02-09 13:00 | PN ---
MHU: Group Therapy Note - Service Type Service Type: 28643 Group Psychotherapy - Cognitive Behavioral Group Therapy ( CBT):Patient was attentive and participatory in CBT programming this morning, and remained in good behavioral control. Patient expressed positive insights regarding relevant treatment interventions and goals.
--- NOTE | 2018-02-09 14:22 | PN ---
Subjective - Subjective Date of Service: 02/09/18 Service Type: 75691 Hosp care 15 min low complexity Subjective: Carl continues to struggle with anxiety and dysphoric mood. "I'm so used to putting on a false mask of being OK, especially around my parents. I've been doing the 'fake it until you make it' thing most of my life. Look where it's gotten me though." The patient continues to have dramatic lack of appetite but is forcing himself to eat. He is tolerating sertraline well so far and denies side effects. I met briefly with his mother today during her lunchtime visit and she agreed to meet with Prabhjot and myself with the social insurance administrator around noon tomorrow. Carl is encouraged to share his true feelings with her, even if it means opening up about his lack of progress. He denies SI. Objective - Appearance Appearance: Thin Framed Dysmorphic Features: No Hygiene: Normal Grooming: Well Kept - Behavior Psychomotor Activities: Normal Exhibits Abnormal Movement: No - Attitude and Relatedness Attitude and Relatedness: Cooperative Eye Contact: Good - Speech Quality: Unpressured Latencies: Normal Quantity: Appropriate - Mood Patient's Decription of Mood: "Sad" - Affect Observed Affect: Constricted Affect Consistent with: Dysphoria - Thought Process Patient's Thought Process: Coherent Thought Content: No Passive Wish, No Suicidal Planning, No Homicidal Ideation, No Paranoid Ideation - Sensorium Experiencing Hallucinations: No, Sensorium is Clear Type of Hallucinations: Visual: No, Auditory: No, Command: No - Level of Consciousness Level of Consciousness: Alert Orientation: Yes Intact, Yes Orientated to Time, Yes Orientated to Place, Yes Orientated to Person - Impulse Control Impulse Control: Poor - Insight and Judgement Insight and Judgement: Impaired - Group Participation Particating in Group Activities: Yes - Medication Management Medication Management Adherence: Yes Assessment - Assessment Merits Inpatient Hospitalization: For Immediate Safety, For Stabilization Inpatient DSM-V Dx: F33.2 Clinical Impression: 22 y.o. 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 Plan - Plan Treatment Plan: Name: CARL MURRAY Birthdate: 1995 [id number] The patient has been started on a trial of sertraline 50mg PO qday. He remains symptomatic with severe depression and anxiety and will require further inpatient stabilization. Expect family meeting with his mother tomorrow. Continued Medication Management: Start Medication Medications: Current Medications Acetaminophen (Tylenol Tab*) 650 mg PO Q4H PRN PRN Reason: PAIN or TEMP > 101 F Al Hydrox/Mg Hydrox/Simethicone (Maalox Plus*) 30 ml PO Q4H PRN PRN Reason: INDIGESTION Multivitamins (Theragran Tab*) 1 tab PO DAILY [facility] Last Admin: 02/09/18 09:00 Dose: 1 tab Sertraline HCl (Zoloft*) 50 mg PO DAILY [facility] Last Admin: 02/09/18 09:00 Dose: 50 mg - Discharge Plan Discharge Plan: Inpatient Hospitalization
[2018-02-10] MEDS: Sertraline* 50 MG TAB PO SCH (09:18)
[2018-02-10] MEDS: Vitamin THERAPEUTIC TAB PO SCH (09:18)
--- NOTE | 2018-02-10 15:56 | PN ---
Subjective - Subjective Date of Service: 02/10/18 Service Type: 28220 Family Medical Psyc Subjective: Carl had a therapeutic family meeting attended by his mother, Augusto, unit SW Yuki Malcolm and his father, Refugio over the phone. We discussed some of the family dynamics and his father acknowledged his own role in stressing Carl over the years with his driven, demanding personality. Carl made his progress clear to everyone and accepted that he would need further support and monitoring of his wellbeing by his parents after discharge. He is leaning towards a plan of taking a medical leave of absence from [employer], staying in [place] with his mother staying with him and attending the [facility] program at [facility]. Carl is tolerating his medication well and denies side effects. He denies SI and is comfortable targeting this Thursday for discharge. Objective - Appearance Appearance: Thin Framed Dysmorphic Features: No Hygiene: Normal Grooming: Fairly Well Kept - Behavior Psychomotor Activities: Normal Exhibits Abnormal Movement: No - Attitude and Relatedness Attitude and Relatedness: Cooperative Eye Contact: Fair - Speech Quality: Unpressured Latencies: Normal Quantity: Appropriate - Mood Patient's Decription of Mood: "Okay" - Affect Observed Affect: Fair Affect Consistent with: Euthymia - Thought Process Patient's Thought Process: Coherent Thought Content: No Passive Wish, No Suicidal Planning, No Homicidal Ideation, No Paranoid Ideation - Sensorium Experiencing Hallucinations: No, Sensorium is Clear Type of Hallucinations: Visual: No, Auditory: No, Command: No - Level of Consciousness Level of Consciousness: Alert Orientation: Yes Intact, Yes Orientated to Time, Yes Orientated to Place, Yes Orientated to Person - Impulse Control Impulse Control: Intact - Insight and Judgement Insight and Judgement: Good - Group Participation Particating in Group Activities: Yes - Medication Management Medication Management Adherence: Yes Assessment - Assessment Merits Inpatient Hospitalization: For Immediate Safety, For Stabilization Inpatient DSM-V Dx: F33.2 Clinical Impression: 22 y.o. 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 Plan - Plan Treatment Plan: Name: CARL MURRAY Birthdate: 1995 [id number] The patient has been started on a trial of sertraline 50mg PO qday. He remains symptomatic with severe depression and anxiety and will require further inpatient stabilization. Target February 12, for discharge. Continued Medication Management: Start Medication Medications: Current Medications Acetaminophen (Tylenol Tab*) 650 mg PO Q4H PRN PRN Reason: PAIN or TEMP > 101 F Al Hydrox/Mg Hydrox/Simethicone (Maalox Plus*) 30 ml PO Q4H PRN PRN Reason: INDIGESTION Multivitamins (Theragran Tab*) 1 tab PO DAILY [facility] Last Admin: 02/10/18 09:18 Dose: 1 tab Sertraline HCl (Zoloft*) 50 mg PO DAILY [facility] Last Admin: 02/10/18 09:18 Dose: 50 mg - Discharge Plan Discharge Plan: Inpatient Hospitalization
[2018-02-11] MEDS: Sertraline* 50 MG TAB PO SCH (09:03)
[2018-02-11] MEDS: Vitamin THERAPEUTIC TAB PO SCH (09:03)
[2018-02-11] MEDS ORDERED: hydrOXYzine HCL TAB* 50 MG PO PRN (10:35)
--- NOTE | 2018-02-11 11:38 | PN ---
MHU: Group Therapy Note - Service Type Service Type: [id number] Group Psychotherapy - Cognitive Behavioral Group Therapy ( CBT):Patient was attentive and participatory in CBT programming this morning, and remained in good behavioral control. Patient expressed positive insights regarding relevant treatment interventions and goals.
--- NOTE | 2018-02-11 15:18 | PN ---
Subjective - Subjective Date of Service: 02/11/18 Service Type: 73899 Hosp care 15 min low complexity Subjective: Carl feels well and is tolerating his sertraline without side effects. He continues to deny SI. "I feel really good about the meeting yesterday with my parents. I just wish it had been longer. I talked with my mom after and with my dad on the phone for over 45 minutes. They are really supportive and getting where I'm coming from. I felt great." He is optimistic about discharge tomorrow and understands that he needs to call the hospital or return should his suicidal intentions resume. He is quite active on the milieu and seems to be getting a lot of going to groups.. Objective - Appearance Appearance: Thin Framed Dysmorphic Features: No Hygiene: Normal Grooming: Well Kept - Behavior Psychomotor Activities: Normal Exhibits Abnormal Movement: No - Attitude and Relatedness Attitude and Relatedness: Cooperative Eye Contact: Fair - Speech Quality: Unpressured Latencies: Normal Quantity: Appropriate - Mood Patient's Decription of Mood: "Good" - Affect Observed Affect: Good Affect Consistent with: Euthymia - Thought Process Patient's Thought Process: Coherent Thought Content: No Passive Wish, No Suicidal Planning, No Homicidal Ideation, No Paranoid Ideation - Sensorium Experiencing Hallucinations: No, Sensorium is Clear Type of Hallucinations: Visual: No, Auditory: No, Command: No - Level of Consciousness Level of Consciousness: Alert Orientation: Yes Intact, Yes Orientated to Time, Yes Orientated to Place, Yes Orientated to Person - Impulse Control Impulse Control: Intact - Insight and Judgement Insight and Judgement: Good - Group Participation Particating in Group Activities: Yes - Medication Management Medication Management Adherence: Yes Assessment - Assessment Merits Inpatient Hospitalization: Consolidate Improvements, Pending Safe DC Plan Inpatient DSM-V Dx: F33.2 Clinical Impression: 22 y.o. 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 Plan - Plan Treatment Plan: Name: CARL MURRAY Birthdate: 1995 [id number] The patient has been started on a trial of sertraline 50mg PO qday. He remains symptomatic with severe depression and anxiety and will require further inpatient stabilization. Target tomorrow, February 12, for discharge. Continued Medication Management: Start Medication Medications: Current Medications Acetaminophen (Tylenol Tab*) 650 mg PO Q4H PRN PRN Reason: PAIN or TEMP > 101 F Al Hydrox/Mg Hydrox/Simethicone (Maalox Plus*) 30 ml PO Q4H PRN PRN Reason: INDIGESTION Hydroxyzine HCl (Atarax Tab*) 50 mg PO Q6H PRN PRN Reason: ANXIETY Multivitamins (Theragran Tab*) 1 tab PO DAILY [facility] Last Admin: 02/11/18 09:03 Dose: 1 tab Sertraline HCl (Zoloft*) 50 mg PO DAILY [facility] Last Admin: 02/11/18 09:03 Dose: 50 mg - Discharge Plan Discharge Plan: [facility]
--- NOTE | 2018-02-11 16:21 | PN ---
MHU: Group Therapy Note - Service Type Service Type: [id number] Group Psychotherapy - Medication Education Group: Patient was attentive and participatory in group, and remained in good behavioral control. Patient expressed positive insights regarding relevant treatment interventions. Patient stated understanding of material discussed and had appropriate questions.
[2018-02-12 08:06] VITALS: BP 135/72
[2018-02-12] MEDS: Sertraline* 50 MG TAB PO SCH (08:53)
[2018-02-12] MEDS: Vitamin THERAPEUTIC TAB PO SCH (08:53)
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
== END 2018-02-12 14:00 | disposition home or self-care (01) | DRG 885 ==
LOC: BSU 18:05
PROVIDERS: ADMIT Psychiatry & Neurology Psychiatry; ATTEND Psychiatry & Neurology Psychiatry
PROC: GZHZZZZ Group Psychotherapy (ICD-10-PCS; principal; 2018-02-08)
DX: F32.2 Major depressive disorder, single episode, severe without psychotic features (principal); T65.0X Toxic effect of cyanides; F12.90 Cannabis use, unspecified, uncomplicated; M41.9 Scoliosis, unspecified; F41.1 Generalized anxiety disorder; Y92.214 College as the place of occurrence of the external cause
CPT/HCPCS: 90847; 90853; 99222; 99231; 99238; A9270-GY